=== PATIENT | male | born 1995 | race Caucasian/White ===

== ENCOUNTER 2019-06-18 06:05 | Day surgery (SDC) | payer OTHER ==
[~2019-06-18] VITALS: Ht 180.3 cm; Wt 79.4 kg
[2019-06-18] MEDS ORDERED: BUPIVACAINE-MPF/EPI 0.25% 30 ML VIAL INJ ONE (07:38)
[2019-06-18] MEDS ORDERED: LIDOCAINE 1% 500 MG/50 ML VIAL ONE (07:39)
[2019-06-18] MEDS ORDERED: HYDROmorphone 1 MG/ML AMP IVP PRN (08:10)
[2019-06-18] MEDS ORDERED: ONDANSETRON 4 MG/2 ML VIAL IVP PRN (08:10)
== END 2019-06-18 11:00 | disposition home or self-care (01) ==
LOC: MOR 06:05 → MMU 06:06 → MOR 11:00
PROVIDERS: ATTEND Surgery
DX: L05.01 Pilonidal cyst with abscess (principal)
CPT/HCPCS: 11770; 71045; 88304; 93005; J0690; J2001; J3490; J7060; J7120; Q0092